=== PATIENT | male | born 1980 | race Caucasian/White ===

== ENCOUNTER 2025-01-14 10:01 | Emergency (ER) | payer OTHER, SELFPAY ==
[2025-01-14 10:12] VITALS: BP 146/98; PULSE 89; RESP 16; TEMP 36.6; O2SAT 99
--- NOTE | 2025-01-14 10:21 | ED_ITS ---
HPI - Eye Problem General Chief complaint: Eye Problems Stated complaint: EYE REDNESS Time Seen by Provider: 01/14/25 10:21 Source: patient, RN notes reviewed and old records reviewed Mode of arrival: ambulatory Limitations: no limitations History of Present Illness HPI Narrative: 44 year old male [facility] complaints of bilateral redness itchingand gritting feeling to his eyes since yesterday and matting noted this morning from his eyes. Patient reports no sharp pain to his eyes ad denies any visual changes. Patient has noted elevation of blood pressure and states that he is suppose to be on blood pressure medication but hasn't been taking and is traveling and doesn't have medication with him. Patient also reports that he is suppose to be on Metformin but he doesn't take it. Patient reports that he has used some OTC eye drops for his symptoms called clear eyes. chief complaint: eye redness Onset (ago): day(s) (day 2 of symptoms) Onset description: gradual Location: both eyes Eye Symptoms: redness, itching and discharge Severity: moderate Treatments Prior to Arrival: OTC eye drops Related Data Allergies Allergy/AdvReac Type Severity Reaction Status Date / Time No Known Allergies Allergy Verified 01/14/25 10:08 Review of Systems Review of Systems: CONSTITUTIONAL: Denies fever, chills, or sweats. EYES: Denies visual changes. Reports redness,, irritation, discharge. from bilateral eyes since yesterday with eyes itchy and feeling gritty ENT: Denies rhinorrhea, congestion, sore throat, or otalgia. CARDIOVASCULAR: Denies chest pain, palpitations, or edema. RESPIRATORY: Denies cough or dyspnea. SKIN: Denies rash or itching. NEUROLOGIC: Denies headache All systems reviewed & are unremarkable except as noted in HPI and below PMFSH Past Medical History Medical History (Updated 01/16/25 @ 13:52 by Shanti Francis NP) Hypertension Diabetes Surgical History Surgical History (Updated 01/16/25 @ 13:48 by Shanti Francis NP) History of mandibular surgery Social History Social History (Updated 01/16/25 @ 13:49 by Shanti Francis NP) Smoking packs per day: 1 Smoking cigarettes per day: 20.0 Smoking status: Current every day smoker Tobacco type: cigarettes Alcohol intake: current Alcohol use details: social Substance use type: does not use Living arrangements: with family Gender identity (if verbalized by the patient): Male Comments At time of signature, agree with nursing past medical, surgical, social and family history. There is no relevant family history pertinent to the presenting complaint Exam Narrative: GENERAL: Well-appearing, well-nourished, and in no acute distress. HEAD: Normocephalic, atraumatic. EYES: PERRLA and EOMI. Upper and lower eyelids unremarkable. No periorbital cellulitis noted. Sclera and conjunctivae injected bilateral eyes, with mucoid drainage, denies any visual changes or sharp pain, denies any foreign body sensation or any trauma to eyes. ENT: Nares clear, no rhinorrhea or epistaxis. Mucous membranes moist. NECK: Supple.no lymphadenopathy CHEST: Clear to auscultation. No respiratory distress. no cough noted SAO2 99% on room air HEART: Regular rate and rhythm. No murmur heard. Normal peripheral pulses. SKIN: Warm, dry, no rash. NEURO: No focal deficits. Alert and oriented x3. Course Course Emergency Course: Patient is aware of diagnosis, understands and agrees to treatment plan. Anticipatory guidance given. Patient agrees to follow-up as directed and is aware of reasons to seek care at the emergency department. Portions of this record may have been created with voice recognition software Level of Care: Express Care Visit Vital Signs Vital signs: Vital Signs Temperature 36.6 C 01/14/25 10:12 Pulse Rate 89 01/14/25 10:12 Respiratory Rate 16 01/14/25 10:12 Blood Pressure 146/98 H 01/14/25 10:12 Pulse Oximetry 99 01/14/25 10:12 Oxygen Delivery Room Air 01/14/25 10:12 Temperature 36.6 C 01/14/25 10:12 Pulse Rate 89 01/14/25 10:12 Respiratory Rate 16 01/14/25 10:12 Blood Pressure 146/98 H 01/14/25 10:12 Pulse Oximetry 99 01/14/25 10:12 Oxygen Delivery Room Air 01/14/25 10:12 Reviewed MDM - Eye Problem MDM Narrative Medical decision making narrative: Consideration of the following conditions may be warranted for the presenting problem, they are not final diagnoses: Bacterial conjunctivitis, allergic conjunctivitis, viral conjunctivitis, foreign body, blepharitis, chalazion, hordeolum, corneal abrasion.? Exam findings show no acute concerns or changes; patient is non-toxic appearing and is in no distress.? Patient is appropriate for outpatient treatment and follow-up. Differential Diagnosis Differential diagnosis: Likely conjunctivitis, subconjunctival hemorrhage and other (mucoid discharge eyes) Medical Records Attestation: I reviewed the patient's medical records. Critical Care Time Critical Care Time Critical Care Time: No Discharge Plan Discharge Clinical Impression: Conjunctivitis Qualifiers: Conjunctivitis type: acute Acute conjunctivitis type: unspecified Laterality: bilateral Qualified Code(s): H10.33 - Unspecified acute conjunctivitis, bilateral Patient Disposition: Home, Self-Care Condition: Stable Instructions: How to Use Eye Drops (ED), Conjunctivitis (ED) Additional Instructions: Cold compresses to the eyes for comfort May need warm compresses to remove debris in the morning When cleaning the eyes used a washcloth in one direction then change washcloths or use a cotton ball in one direction and then his cotton balls Eyedrops as directed--may be more soothing if left in the refrigerator Do not share medicine--do not touch the eye with the medicine Tylenol or ibuprofen for pain Avoid screen time--television, computer, tablet or phone. Also no reading or driving Follow-up with PCP or aoc plans intelligence officer chief as directed If your symptoms persist, change or worsen significantly before you can contact your personal physician then please, without delay, go to the emergency department for further evaluation. Follow-up with PCP in 7-10 days or sooner if needed Follow up with PCP soon in regards to your blood pressure which is elevated above threshold for referral. Blood pressure above 120/80 may indicate pre-hypertension.146/98 Patient Language: Swazi Prescriptions: New ofloxacin 0.3 % drops See Rx Instructions .ROUTE .COMPLEX Qty: 10 0RF Rx Instructions: put 1-2 drps into affected eye(s) every 2-4 h x 2 days, then 1-2 drps 4 times/day days 3-7 lisinopril 5 mg tablet 5 mg PO DAILY Qty: 30 0RF Rx Instructions: take one tab daily Follow-up/Referrals: PHYSICIAN,ACCOUNTS SUPERVISOR [Primary Care Provider] - Time of Disposition: 10:36 Quality [place] Coma Scale Eyes: Open Verbal: Oriented and Alert Motor: Follows Commands [place] Coma Total Score: 15
== END 2025-01-14 10:39 | disposition home or self-care (01) ==
PROVIDERS: Emergency Provider Registered Nurse
DX: H10.33 Unspecified acute conjunctivitis, bilateral (principal); F17.210 Nicotine dependence, cigarettes, uncomplicated; I10 Essential (primary) hypertension; E11.9 Type 2 diabetes mellitus without complications
CPT/HCPCS: 99213; G0463